=== PATIENT | male | born 1980 | race Hispanic/Latino ===

== ENCOUNTER 2021-07-13 08:31 | Emergency (ER) | payer BC ==
[~2021-07-13] VITALS: Ht 180.3 cm; Wt 129.3 kg
[2021-07-13] MEDS ORDERED: KETOROLAC 60 MG VIAL (30MG/ML) IM ONE (10:00)
[2021-07-13 10:53] VITALS: BP 131/88
[2021-07-13] MEDS ORDERED: [UNRECOGNIZED DRUG - CODE] PO (13:28)
[2021-07-13] MEDS ORDERED: [UNRECOGNIZED DRUG - CODE] PO (13:28)
[2021-07-13] MEDS ORDERED: DEXAMETHASONE SOD PHOSPHATE 4 MG/ML 1ML VIAL IM ONE (13:30)
[2021-07-13 14:15] VITALS: BP 122/88
== END 2021-07-13 15:02 | disposition home or self-care (01) ==
LOC: EDH 08:31
DX: M54.16 Radiculopathy, lumbar region (principal); E78.00 Pure hypercholesterolemia, unspecified; I10 Essential (primary) hypertension; I25.10 Atherosclerotic heart disease of native coronary artery without angina pectoris; I25.2 Old myocardial infarction; Z88.1 Allergy status to other antibiotic agents; Z88.2 Allergy status to sulfonamides
CPT/HCPCS: 72148; 96372 ×2; 99284; J1100; J1885

== ENCOUNTER → 2022-12-09 | Outpatient (CLI) | payer BC ==
[~2022-12-09] MED LIST: [UNRECOGNIZED DRUG - CODE] PO; [UNRECOGNIZED DRUG - CODE] PO
== END | disposition home or self-care (01) ==
LOC: RAH 08:54
PROVIDERS: ATTEND Family Medicine Sports Medicine
DX: M54.50 Low back pain, unspecified (principal); M43.17 Spondylolisthesis, lumbosacral region; M48.061 Spinal stenosis, lumbar region without neurogenic claudication
CPT/HCPCS: 72148

== ENCOUNTER → 2022-12-19 | Outpatient (CLI) | payer BC | END | disposition home or self-care (01) | LOC: RAH 13:41 | PROVIDERS: ATTEND Physical Medicine & Rehabilitation | DX: M54.16 Radiculopathy, lumbar region (principal) | CPT/HCPCS: 72114 ==

== ENCOUNTER → 2023-02-10 | Outpatient (CLI) | payer BC | END | disposition home or self-care (01) | LOC: RAH 12:41 | PROVIDERS: ATTEND Neurological Surgery | DX: M47.26 Other spondylosis with radiculopathy, lumbar region (principal); M43.17 Spondylolisthesis, lumbosacral region; M48.07 Spinal stenosis, lumbosacral region; M51.16 Intervertebral disc disorders with radiculopathy, lumbar region | CPT/HCPCS: 72131 ==

== ENCOUNTER → 2023-06-25 | Outpatient (CLI) | payer BC | END | disposition home or self-care (01) | LOC: RAH 13:32 | PROVIDERS: ATTEND Neurological Surgery | DX: M43.16 Spondylolisthesis, lumbar region (principal); M54.16 Radiculopathy, lumbar region | CPT/HCPCS: 72100 ==

== ENCOUNTER → 2024-03-24 | Outpatient (CLI) | payer BC | END | disposition home or self-care (01) | LOC: RAH 14:06 | PROVIDERS: ATTEND Neurological Surgery | DX: M47.26 Other spondylosis with radiculopathy, lumbar region (principal) | CPT/HCPCS: 72020 ==